=== PATIENT | male | born 1990 | race African-American/Black ===

== ENCOUNTER 2025-03-16 11:12 | Outpatient (CLI) | payer OTHER, SELFPAY ==
[2025-03-16 12:23] LABS: Microscopic, Urine URINE MICROSCOPIC (MICROSCOPIC)
[2025-03-16 12:48] LABS: Basophils % 0.4 % (0.1-2.0); Eosinophils # 0.4 Kmm3 (0.0-0.4); Eosinophils % 5.7 % (0.1-12.0); Hemoglobin 13.5 g/dL (14.1-18.0); Immature Granulocytes # 0.03 10^3uL; Immature Granulocytes % 0.4 %; Lymphocytes # 2.4 K/mm3 (0.7-4.5); Lymphocytes % 30.4 % (10-50); Mean Corpuscular HGB Conc 31.4 g/dL (31.8-35.4); Mean Corpuscular Hemoglobin 26.5 pg (27.0-31.2); Mean Corpuscular Volume 84.5 fl (80-94); Mean Platelet Volume 9.8 fl (7.4-10.4); Monocytes # 0.5 K/mm3 (0.1-1.0); Monocytes % 6.5 % (1.7-9.3); Neutrophils # 4.4 K/mm3 (1.8-7.8); Neutrophils % 56.6 % (37.0-80.0); Nucleated Red Blood Cells # 0 10^3/uL; Nucleated Red Blood Cells % 0 %; Platelet Count 351 K/mm3 (142-424); Red Blood Count 5.09 M/mm3 (4.60-6.20); Red Cell Distribution Width 13.5 % (11.5-17.5); Red Cell Distribution Width-SD 41.7 fL; White Blood Count 7.7 K/mm3 (4.8-10.8)
[2025-03-16 12:49] LABS: Appearance,Urine CLEAR (Clear); Bilirubin,Urine Negative (Negative); Blood, Urine Negative (Negative); Color,Urine YELLOW (Yellow); Glucose,Urine (UA) Negative (Negative); Ketones,Urine Negative (Negative); Leukocyte Esterase,Urine Negative (Negative); Nitrate,Urine Negative (Negative); Protein,Urine Negative (Negative); Specific Gravity, Urine 1.025 (1.005-1.030); Urobilinogen,Urine 0.2 EU/dl (0.2)
[2025-03-16 13:08] LABS: Alanine Aminotransferase 27 U/L (12-78); Albumin Level 4.4 g/dl (3.5-5.0); Albumin/Globulin Ratio 1.5 (1.1-1.8); Alkaline Phosphatase 98 U/L (38-126); Anion Gap 12.9 mEq/L (5-15); Aspartate Amino Transferase 28 U/L (17-59); Bilirubin,Total 0.3 mg/dl (0.2-1.3); Blood Urea Nitrogen 17 mg/dl (9-20); Calcium 9.7 mg/dl (8.4-10.2); Carbon Dioxide 29 mmol/L (22.0-30.0); Chloride 106 mmol/L (98-107); Chol/HDL Ratio 4.3 (1-3.5); Cholesterol 189 mg/dl (140-200); Estimated Glomerular Filt Rate 77 ml/min (>60); GFR (African American) 93 ML/MIN (>60); Glucose 97 mg/dl (74-100); HDL Cholesterol 44 mg/dl (40-60); Potassium 4.9 mmoL/L (3.5-5.1); Sodium 143 mmol/L (136-145); Total Protein,Serum 7.4 g/dl (6.3-8.2); Triglycerides 112 mg/dl (30-150); VLDL Cholesterol 22 mg/dL (0-40)
[2025-03-16 13:19] LABS: Direct LDL Cholesterol 107.65 mg/dL (100-129)
[2025-03-16 13:28] LABS: 25-OH Vitamin D, Total 35.7 ng/mL (30-100)
[2025-03-16 13:36] LABS: Hemoglobin A1C 5.5 % (4.0-6.0)
[2025-03-16 13:40] LABS: Thyroid Stimulating Hormone 1.13 uIU/mL (0.465-4.68)
[2025-03-16 13:49] LABS: HIV Combo NEGATIVE (Negative)
[2025-03-16 13:57] LABS: Hepatitis C Ab Qual. W/ RFX REACTIVE (Negative)
[2025-03-16 13:59] LABS: Vitamin B12 652 pg/mL (239-931)
[2025-03-16 14:06] LABS: Iron 100 ug/dL (49-181)
[2025-03-16 14:15] LABS: Total Iron Binding Capacity 294 ug/dL (261-462)
[2025-03-16 14:42] LABS: Ferritin 40.2 ng/ml (17.9-464)
[2025-03-17 09:13] LABS: Hepatitis B Surface Antigen Negative (Negative)
== END 2025-03-16 23:59 | disposition home or self-care (01) ==
LOC: LAB.DROPOF 03-17 12:32
PROVIDERS: PCP Nurse Practitioner Family; Visit Provider Nurse Practitioner Family
DX: G47.33 Obstructive sleep apnea (adult) (pediatric) (principal); I10 Essential (primary) hypertension; E11.9 Type 2 diabetes mellitus without complications; R53.83 Other fatigue; R41.3 Other amnesia; Z11.4 Encounter for screening for human immunodeficiency virus [HIV]; Z11.59 Encounter for screening for other viral diseases; Z13.220 Encounter for screening for lipoid disorders; Z68.32 Body mass index [BMI] 32.0-32.9, adult; Z76.89 Persons encountering health services in other specified circumstances
CPT/HCPCS: 80053; 80061; 81001; 82306; 82607; 82728; 83036; 83540; 83550; 84439; 84443; 85025; 86803; 87086; 87340; 87389; 87522

== ENCOUNTER 2025-04-12 14:43 | Outpatient (CLI) | payer OTHER, SELFPAY ==
--- OUTSIDE RECORDS SUMMARY | 2018-07-11 13:31 | XMS_ITS | Continuity of Care Document ---
Author Organization [employer] Address [address] [place] [address] Phone Care Team Providers Care Certified Financial Planner Name Role Phone Services, Enabling Unavailable Unavailable [...] Offic/outpt E&m Estab Low-mod 8 OFFICE/OUTPATIENT VISIT, [facility] Advance Directives Directive Yes / No Effective Date File Name No Information Encounters Encounter Description Practice Location Reason(s) For Visit Diagnoses Date Provider Providers Copied on Encounter [employer], [address] [place] [address], [id number], tel:[phone] Z Default Location No Information Services Enabling. [address] [place] [address], [id number], [place]. tel:[phone] Offic/outpt E&m Estab Mod-hi 4 [facility], [address] [place] [address], [id number], tel:[phone] [facility] Medical est care (chief complaint) Encntr for general adult medical exam w/o abnormal findingsStrain of left shoulder, initial encounter 8 Choco Ayala. [address] [facility], [place], [address], [place]. tel:[phone] Offic/outpt E&m Estab Mod-hi 2 [facility], [address] [place], [place], [id number], [place] tel:[phone] [facility] left shoulder pain (chief complaint) Chronic left shoulder pain Sep- 8 Choco Salvatoredimitry. [address] [facility], [place], [address], [place]. tel:[phone] Offic/outpt E&m Estab Low-mod [facility], [address] [place], [place], [id number], [place] tel:[phone] [facility] Immediate Care Left shoulder pain x 1 month (chief complaint) Chronic left shoulder pain Sep- 8 Daniele Ortega. [address] [facility], [facility] [place], [address]. [phone] OFFICE/OUTPA TIENT VISIT, [facility], [facility] [place], [place], [id number], tel:[phone] [facility] Immediate Care Wrist and Shoulder Pain (chief complaint) Strain of left shoulder, initial encounterSprain of left wrist, initial encounter 8 Hakeem Melendez. [address] [facility] [address], [place], [address]. [phone] Family History Family Member Type Diagnosis Age At Onset No Information Payers Payer name Insurance type Covered democrat ID Rangel short(s) [facility] [id number] [address] [id number] Social History Type Description Quantity Date Captured [...] due Goal Tdap. Due on due Goal Depression screening. Due on due Goal Td vaccine. Due on 18 due Goal Td vaccine. Due on 18 [...] 05/14/2018. Pt presenting for initial health assessment/establish [facility] complaint: Shoulder Pain (L)The pain is aching [...]
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
--- OUTSIDE RECORDS SUMMARY | 2025-04-12 14:46 | XMS_ITS | Clinical Summary ---
Author Organization [facility] Address [address] [place] [address] Care Team Providers Care Programmer Analyst Health It Name Role Phone Pcp, No Primary Care Provider Unavailabl e Allergies No known active allergies Medications gabapentin (Neurontin) 300 MG capsuleIndication s:Herpes zoster without complication Take 1 capsule (300 mg) by mouth 3 (three) times a day for 7 days. 21 capsule Active Active Problems No known active problems Social History Tobacco Use Types Packs/Day Years Used Date Smoking Tobacco: Every Day Cigarettes Passive Smoke Exposure: Never Smokeless Tobacco: Never Tobacco Cessation:Ready to Q uit: Not Asked; Counseling Given: Not Answered Sex and Gender Information Value Date Recorded Sex Assigned at Not on file Legal Sex Male 8:54 AM EST Gender Identity Not on file Sexual Orientation Not on file Last Filed Vital Signs Vital Sign Reading Time Taken Comments Blood Pressure 126/84 09/14/2024 9:06 AM EST Pulse 60 09/14/2024 9:06 AM EST Temperature 36.7 C (98 F) 09/14/2024 9:06 AM EST Respiratory Rate - - Oxygen Saturation 97% 09/14/2024 9:06 AM EST Inhaled Oxygen Concentration - - Weight 109 kg (240 lb) 09/14/2024 9:06 AM EST Height 190.5 cm (6' 3 ) 09/14/2024 9:06 AM EST Body Mass Index 30 09/14/2024 9:06 AM EST Plan of Treatment Health Maintenance Due Date Last Done Comments [facility]-Depression Screening 1990 [facility]-HIV Screening 1990 [facility]-Hepatitis C Screening 1990 [facility]-/Child/Adol SDOH Screenings 1990 [facility]-Varicella Vaccines (1 of 2 - 13+ 2-dose series) 2003 HPV Vaccines (1 - Male 3-dos e series) 2005 [facility]- SDOH Screenings 2008 [facility]-Adult SDOH Screenings 2008 [facility]-DTaP,Tdap,and Td Vaccine s (1 - Tdap) 2009 [facility]-Hepatitis B Vaccines (1 of 3 - 19+ 3-dose series) 2009 [facility]-Pneumococcal Vaccine: Pediatrics (0 to 5 Years) and At-Risk Patients (6 to 49 Years) (1 of 2 - PCV) 2009 [id number] Vaccine (1 - 20 24-25 season) 2024 [facility]-Influenza Vaccine (Seas[place] n Ended) 2025 [facility]-Zoster Vaccines (1 of 2) 2040 [facility]-Obesity Intervention Completed 09/14/2024 [facility]-HIB Vaccines Aged Out No longer e ligible based on patient's age to complete this topic [facility]-Hepatitis A Vaccines Aged Out No longer eligible based on patient's age to complete this topic [facility]-IPV Vaccines Aged Out No longer e ligible based on patient's age to complete this topic [facility]-Rotavirus Vaccines Aged Out No lo nger eligible based on patient's age to complete this topic Care Teams Programmer Analyst Health It Relationship Specialty Start Date End Date Pcp, Enedelia [address] [place] [address] PCP - General Family Medicine 09/14/24
== END 2025-04-12 23:59 | disposition home or self-care (01) ==
PROVIDERS: PCP Nurse Practitioner Family; Visit Provider Nurse Practitioner Family
DX: S89.92XA Unspecified injury of left lower leg, initial encounter (principal)
CPT/HCPCS: 73562

== ENCOUNTER 2025-04-22 14:33 | Outpatient (CLI) | payer OTHER, SELFPAY ==
--- OUTSIDE RECORDS SUMMARY | 2018-07-11 13:31 | XMS_ITS | Continuity of Care Document ---
Author Organization [employer] Address [address] [place] [address] Phone Care Team Providers Care Stummel Selector Name Role Phone Services, Enabling Unavailable Unavailable [...] Offic/outpt E&m Estab Low-mod 8 OFFICE/OUTPATIENT VISIT, [facility] Advance Directives Directive Yes / No Effective Date File Name No Information Encounters Encounter Description Practice Location Reason(s) For Visit Diagnoses Date Provider Providers Copied on Encounter [employer], [address] [place] [address], [id number], tel:[phone] Z Default Location No Information Services Enabling. [address] [place] [address], [id number], [place]. tel:[phone] Offic/outpt E&m Estab Mod-hi 4 [facility], [address] [place] [address], [id number], tel:[phone] [facility] Medical est care (chief complaint) Encntr for general adult medical exam w/o abnormal findingsStrain of left shoulder, initial encounter 8 Choco Ayala. [address] [facility], [place], [address], [place]. tel:[phone] Offic/outpt E&m Estab Mod-hi 2 [facility], [address] [place], [place], [id number], [place] tel:[phone] [facility] left shoulder pain (chief complaint) Chronic left shoulder pain Sep- 8 Choco Salvatoredimitry. [address] [facility], [place], [address], [place]. tel:[phone] Offic/outpt E&m Estab Low-mod [facility], [address] [place], [place], [id number], [place] tel:[phone] [facility] Immediate Care Left shoulder pain x 1 month (chief complaint) Chronic left shoulder pain Sep- 8 Daniele Ortega. [address] [facility], [facility] [place], [address]. [phone] OFFICE/OUTPA TIENT VISIT, [facility], [facility] [place], [place], [id number], tel:[phone] [facility] Immediate Care Wrist and Shoulder Pain (chief complaint) Strain of left shoulder, initial encounterSprain of left wrist, initial encounter 8 Hakeem Melendez. [address] [facility] [address], [place], [address]. [phone] Family History Family Member Type Diagnosis Age At Onset No Information Payers Payer name Insurance type Covered libertarian ID Rangel short(s) [facility] [id number] [address] [id number] Social History Type Description Quantity Date Captured [...] Goal Depression screening. Due on due Goal Tdap. Due on due Goal Influenza vaccine. Due on due Goal Depression screening. Due on due Goal Td vaccine. Due on due Goal Tdap. Due on due Goal Influenza vaccine. Due on due Goal Depression screening. Due on due Goal Td vaccine. Due on due Referral Ordered: Physical Therapy [...] 05/14/2018. Pt presenting for initial health assessment/establish [facility]3] complaint: Shoulder Pain (L)The pain is aching [...]
--- OUTSIDE RECORDS SUMMARY | 2025-04-22 14:36 | XMS_ITS | Clinical Summary ---
Author Organization [facility] Address [address] [place] [address] Care Team Providers Care Drive Man Name Role Phone Pcp, No Primary Care [...] Years) (1 of 2 - PCV) 2009 [id number] Vaccine (1 - 20 24-25 season) 2024 [facility]-Influenza Vaccine (#1) 2025 [facility]-Zoster Vaccines (1 of 2) 2040 [...] age to complete this topic Care Teams Drive Man Relationship Specialty Start Date End Date Pcp, Enedelia [address] [place] [address] PCP - General Family Medicine 09/14/24
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
== END 2025-04-22 23:59 | disposition home or self-care (01) ==
LOC: RAD 14:34
PROVIDERS: PCP Nurse Practitioner Family; Visit Provider Nurse Practitioner Family
DX: M25.462 Effusion, left knee (principal); S89.92XA Unspecified injury of left lower leg, initial encounter; M25.562 Pain in left knee
CPT/HCPCS: 73721

== ENCOUNTER 2025-08-24 18:53 | Emergency (ER) | payer SELFPAY ==
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
[2025-08-24 18:58] VITALS: BP 189/100; PULSE 100; RESP 18; TEMP 36.7; O2SAT 96; BMI 30.9
--- OUTSIDE RECORDS SUMMARY | 2025-08-24 19:18 | XMS_ITS | Clinical Summary ---
Author Organization [facility] Address [address] [place] [address] Care Team Providers Care Compliance Engineer Products Name Role Phone Pcp, No Primary Care [...] [facility]-HIV Screening 1990 [facility]-Hepatitis C Screening 1990 [facility]-Infant/Child/Adol SDOH Screenings 1990 [facility]-Varicella Vaccines (1 of 2 - 13+ 2-dose series) 2003 [facility]- SDOH Screenings 2008 [facility]-Adult SDOH Screenings 2008 [facility]-DTaP,Tdap,and Td Vaccine s (1 - Tdap) 2009 [facility]-Hepatitis B Vaccines (1 of 3 - 19+ 3-dose series) 2009 [facility]-Pneumococcal Vaccine: Pediatrics (0 to 5 Years) and At-Risk Patients (6 to 49 Years) (1 of 2 - PCV) 2009 HPV Vaccines (1 - 3-dose SCD M series) 2017 [id number] Vaccine (1 - 20 24-25 season) 2025 [facility]-Influenza Vaccine (#1) 2025 [facility]-Zoster Vaccines (1 [...] age to complete this topic Care Teams Compliance Engineer Products Relationship Specialty Start Date End Date Pcp, Enedelia [address] [place] [address] PCP - General Family Medicine 09/14/24
[2025-08-24] MEDS: DOXYCYCLINE HYCL 100 MG TABLET PO (19:30)
[2025-08-24 19:41] LABS: Microscopic, Urine URINE MICROSCOPIC (MICROSCOPIC)
[2025-08-24 19:44] LABS: Bilirubin,Urine Negative (Negative); Color,Urine YELLOW (Yellow); Glucose,Urine (UA) Negative (Negative); Ketones,Urine Negative (Negative); Leukocyte Esterase,Urine Negative (Negative); PH,Urine 6.5 (5.0-8.5); Protein,Urine Negative (Negative); Specific Gravity, Urine 1.010 (1.005-1.030); Urobilinogen,Urine 0.2 EU/dl (0.2)
--- NOTE | 2025-08-24 19:58 | [facility].EDGENADL ---
Discharge Plan Disposition Patient Disposition: Home, Self-Care Prescriptions Prescriptions: New doxycycline hyclate 100 mg capsule 100 mg PO BID 7 Days Qty: 14 0RF Referrals Follow up/Referrals: Linette Bender APRN [Primary Care Provider, Family Practice] - See instructions Activity Restrictions/Add. Instructions Additional Instructions/Restrictions: You can follow-up the results of your urine testing tomorrow by looking on the patient portal or by calling the hospital. You were treated empirically for sexually transmitted infections with high dose of Rocephin and a 7-day course of doxycycline. Take these as prescribed. I do encourage you to follow-up with your primary care physician if symptoms do not improve. If you develop any new or worsening symptoms, or if you become concerned for your health for any reason, return to the emergency department for evaluation. Clinical Impressions Clinical Impression: Dysuria, Discharge from penis Instructions Patient Instructions: DI for Urinary Tract Infection (UTI), DI for Urinary Tract Infection in Children Print Language Print Language: Kyr[place] Discharge ED Provider: Bruno López Adult HPI General Chief complaint: Urogenital-Male Stated complaint: checked for STD,burning with urination Time Seen by Provider: 08/24/25 19:13 Mode of Arrival: Ambulatory Source of Information: Patient Description of Symptoms (Recalled from ER Triage Doc. by RN): reno presents for STD testing. last known contact occured 2 weeks ago. his symptoms include a brown colored discharge while voiding. History of Present Illness HPI narrative: Josef Alvarado is a 35y male with no significant past medical history who presents to the emergency department for complaints of a possible STI. Patient states that 2 weeks ago, he was having protected sex when the condom broke. He states that over the past 1 to 2 days, he has had increased burning with urination and irritation. He also has noticed discharge from his penis. He is concerned that he has a sexually-transmitted infection. He denies any abdominal pain, fever or chest pain. He has no other complaints or concerns at this time. Related Data Previous Rx's ?Medication ?Instructions ?Recorded doxycycline hyclate 100 mg capsule 100 mg PO BID 7 days #14 caps 08/24/25 Allergies Allergy/AdvReac Type Severity Reaction Status Date / Time No Known Allergies Allergy Verified 05/03/25 15:05 [facility] Disclaimer: The information contained in this section may have been updated after the patient was seen, as this information can be updated by other users. Social History Smoking Status: Current every day smoker alcohol intake: never substance use type: denies use current occupational status: employed Travel in the last 8 weeks?: None Have you lived/traveled outside [place] in past 30 days?: No Contact w/someone who lives/traveled outside [place] past 30 days?: No Exposure to someone with infectious disease in past 14 days?: No Do you have a fever (greater than 100.4 F or 38 C)?: No Have you tested positive for COVID-19?: No Exposed to someone with COVID-19 in past 14 days?: No Do you have a sore throat?: No Do you have a cough?: No Do you have any weakness?: No Do you have any diarrhea?: No Are you experiencing any unusual bleeding?: No Do you have any muscle aches/pain?: No Do you have any abdominal pain?: No Are you experiencing loss of taste or smell?: No ROS Obtained: Yes Systems reviewed as appropriate & no additional complaints except as documented Physical Exam General General appearance: alert and in no apparent distress Head Head exam: atraumatic Eye Eye exam: Present normal appearance ENT ENT exam: Present normal external ear exam Neck Neck exam: Present full ROM Chest Chest inspection: Present symmetric chest wall rise Respiratory Respiratory exam: Present normal lung sounds bilaterally; Absent respiratory distress Cardiovascular Cardiovascular exam: Present regular rate and normal rhythm Abdominal Exam Abdominal exam: Present soft exam: Present deferred Extremities Exam Extremities exam: Present normal inspection Back Exam Back exam: Present normal inspection Neurological Exam Neurological exam: Present alert and oriented X3 Psychiatric Psychiatric exam: Present normal affect Skin Skin exam: Present warm and dry Medical Decision Making Medical Records Screening: Per USPSTF and CDC recommendations, given the prevalence of disease in our region, it is our hospital?s policy to screen for HIV and viral Hepatitis for all patients aged 18 and over and those with ongoing risk factors. Shine Inquiry Pt receiving controlled substance: No Vital Signs: 08/24/25 18:58 Temperature 98.0 F Temperature Source Oral Pulse Rate [Right Radial] 100 H Respiratory Rate 18 Blood Pressure [Right Arm] 189/100 H Blood Pressure Mean [Right Arm] 129 Blood Pressure Source [Right Arm] Automatic Cuff Blood Pressure Position [Right Arm] Sitting 02 Sat by Pulse Oximetry 96 Oxygen Delivery Method Room Air Lab Data Lab Results 08/24/25 19:08: Urine Color Yellow, Urine Appearance Clear, Urine pH 6.5, Ur Specific [place] 1.010, Urine Protein Negative, Urine Glucose (UA) Negative, Urine Ketones Negative, Urine Blood Trace-i, Urine Nitrate Negative, Urine Bilirubin Negative, Urine Urobilinogen 0.2, Ur Leukocyte Esterase Negative Orders (Tests/Meds): ED MEDICATIONS Discontinued Medications Generic Name Dose Route Start Last Admin Trade Name [place] PRN Reason Stop Dose Admin Ceftriaxone Sodium 500 mg 08/24/25 19:19 08/24/25 19:31 Ceftriaxone 500mg Vial IM 08/24/25 19:20 500 mg ONCE ONE Administration Doxycycline Hyclate 100 mg 08/24/25 19:21 08/24/25 19:30 Doxycycline Hycl 100 Mg Tablet PO 08/24/25 19:22 100 mg ONCE ONE Administration Lidocaine HCl 0 ml 08/24/25 19:19 Lidocaine 1% 5ml Pf Vial IM 08/24/25 19:20 ONCE ONE ORDERS Category Date Time Status Urinalysis and Microscopic Stat Lab 08/24/25 19:08 Results Urine Chlam/Gono/Trich ([facility]) Stat Lab 08/24/25 19:08 Received Medical Decision Narrative: Josef Alvarado is a 35y male with no significant past medical history who presents to the emergency department for complaints of a possible STI. Patient states that 2 weeks ago, he was having protected sex when the condom broke. He states that over the past 1 to 2 days, he has had increased burning with urination and irritation. He also has noticed discharge from his penis. He is concerned that he has a sexually-transmitted infection. He denies any abdominal pain, fever or chest pain. He has no other complaints or concerns at this time. On arrival, patient is hypertensive and borderline tachycardic but afebrile. Oxygen saturation 96% on room air. Physical exam, as stated above, revealed an overall well-appearing male in no distress. Physical exam is reassuring. Differential diagnosis includes, but is not limited to: Sexually-transmitted infection such as gonorrhea or chlamydia, urinary tract infection, low concern for orchitis or epididymitis as patient is not having any pain in his testicles. Will obtain urine gonorrhea and chlamydia testing as well as urinalysis. Offered patient empiric treatment with IM Rocephin and doxycycline versus waiting for results to return and he wants to proceed with empiric treatment. Will give 500 mg of IM Rocephin and 100 mg of oral doxycycline here in the emergency department. Patient's urinalysis with no nitrates and no leukocyte esterase, microscopy is pending. Urine STI testing is also pending. Patient received his medications and is appropriate for discharge at this time. Patient was instructed to follow-up the results on the patient portal or by calling the hospital. Critical Care Critical Care Time Critical Care Time: No
[2025-08-24 20:05] LABS: Bacteria,Urine Trace /lpf; Mucus,Urine 1+ /lpf; WBC,Urine Occasional #/hpf (0-3)
[2025-08-24 20:08] VITALS: BP 163/96; PULSE 105; RESP 16; TEMP 36.8; O2SAT 95
== END 2025-08-24 20:10 | disposition home or self-care (01) ==
PROVIDERS: Emergency Provider Student in an Organized Health Care Education/Training Program; PCP Nurse Practitioner Family
DX: R36.9 Urethral discharge, unspecified (principal); R30.0 Dysuria; F17.200 Nicotine dependence, unspecified, uncomplicated
CPT/HCPCS: 81001; 87491; 87591; 87661; 96372; 99283; J0696